=== PATIENT | male | born 1965 | race Caucasian/White ===

== ENCOUNTER 2019-01-22 18:38 | Inpatient (IN) | payer MEDICAID ==
[~2019-01-22] VITALS: Ht 170.2 cm; Wt 72.1 kg
[2019-01-22] MEDS ORDERED: CHLO100T24 PO ×2 (19:17)
[2019-01-22] MEDS ORDERED: ATOR20TA86 PO (19:17)
[2019-01-22] MEDS ORDERED: CARB200T6 PO (19:17)
[2019-01-22] MEDS ORDERED: BUPR-93 PO (19:17)
[2019-01-22] MEDS ORDERED: BENZ1TAB10 PO (19:17)
[2019-01-22] MEDS ORDERED: LORazepam 2 MG TABLET PO PRN (19:45)
[2019-01-22] MEDS ORDERED: ZOLPIDEM TARTRATE 10 MG TABLET PO PRN (19:45)
[2019-01-22] MEDS ORDERED: HALOPERIDOL 5 MG TABLET PO PRN (19:45)
[2019-01-22 20:16] VITALS: BP 125/65
[2019-01-22] MEDS: NICOTINE 14 MG/24 HOUR PATCH TD PRN (21:16)
[2019-01-23 06:20] VITALS: BP 117/84
[2019-01-23 07:25] LABS: BASOPHILS % (AUTO) 0.4 % (0.0-2.0); EOSINOPHILS % (AUTO) 6.4 % (1.0-6.0); HEMATOCRIT 42.3 % (41-53); HEMOGLOBIN 14.4 g/dL (13.5-17.5); LYMPHOCYTES # (AUTO) 1.4 K/uL (1.0-4.8); LYMPHOCYTES % (AUTO) 22.9 % (22.0-44.0); MEAN CORPUSCULAR HGB CONC 34.1 G/dL (31.0-37.0); MEAN CORPUSCULAR VOLUME 97 fL (80-100); MONOCYTES # (AUTO) 0.6 K/uL (0.1-1.0); MONOCYTES % (AUTO) 9.6 % (2.0-9.0); NEUTROPHILS # (AUTO) 3.6 K/uL (1.8-7.7); NEUTROPHILS % (AUTO) 60.7 % (40.0-70.0); PLATELET COUNT (AUTO) 211 K/uL (150-450); RED BLOOD CELL COUNT(AUTO) 4.38 MIL/uL (4.50-5.90); RED CELL DISTRIBUTION WIDTH 12.8 % (11.5-14.5)
[2019-01-23 07:50] LABS: HEMOGLOBIN A1C 5.1 % (4.5-6.2)
[2019-01-23 08:03] LABS: ALANINE AMINOTRANSFERASE 33 U/L (12-78); ALBUMIN 3.7 g/dL (3.4-5.0); ALKALINE PHOSPHATASE 66 U/L (46-116); ANION GAP 7 mmol/L (8-16); ASPARTATE AMINOTRANSFERASE 20 U/L (15-37); BILIRUBIN,TOTAL 0.3 mg/dL (0.1-1.0); CALCIUM, TOTAL 9.2 mg/dL (8.8-10.5); CARBAMAZEPINE (TEGRETOL) 4.9 mcg/mL (4.0-12.0); CARBON DIOXIDE 30 mmol/L (22-29); CHLORIDE 100 mmol/L (98-107); CHOLESTEROL 167 mg/dL (131-200); CREATININE 1.06 mg/dL (0.60-1.30); FREE T4 (FREE THYROXINE) 0.66 ng/dL (0.76-1.46); GLOMERULAR FILTR. RATE CALC > 60 mL/min (>60); GLUCOSE,RANDOM 114 mg/dL (70-110); HDL CHOLESTEROL 42 mg/dL (40-60); LDL CHOL (CALC.) 112 mg/dL (0-130); POTASSIUM 4.4 mmol/L (3.5-5.1); SODIUM SERUM 137 mmol/L (136-145); THYROID STIMULATING HORMONE 1.44 uIU/mL (0.36-3.74); TOTAL PROTEIN, SERUM 7.4 g/dL (6.4-8.2); TRIGLYCERIDES 65 mg/dL (15-150); UREA NITROGEN, BLOOD 13 mg/dL (7-18)
[2019-01-23 08:10] VITALS: BP 101/66
[2019-01-23] MEDS: ATORVASTATIN CALCIUM 20 MG TABLET PO SCH (08:20)
[2019-01-23] MEDS: BuPROPion HCL XL 150 MG ER TABLET PO SCH (13:13)
[2019-01-23] MEDS: CarBAMazepine 200 MG TABLET PO SCH (16:36)
[2019-01-23] MEDS: BENZTROPINE MESYLATE 0.5 MG TABLET PO SCH (16:36)
[2019-01-23 17:00] VITALS: BP 108/69
[2019-01-23] MEDS: ChlorproMAZINE HCL 100 MG TABLET PO SCH (20:09)
[2019-01-24 06:05] VITALS: BP 100/60
[2019-01-24] MEDS: CarBAMazepine 200 MG TABLET PO SCH ×2 (08:05→16:28)
[2019-01-24] MEDS: BENZTROPINE MESYLATE 0.5 MG TABLET PO SCH ×2 (08:05→16:28)
[2019-01-24] MEDS: BuPROPion HCL XL 150 MG ER TABLET PO SCH (08:05)
[2019-01-24] MEDS: ATORVASTATIN CALCIUM 20 MG TABLET PO SCH (08:05)
[2019-01-24] MEDS: ChlorproMAZINE HCL 100 MG TABLET PO SCH ×2 (08:05→20:10)
[2019-01-24 08:22] VITALS: BP 113/79
[2019-01-24] MEDS ORDERED: HYPROMELLOSE 0.5% 15 ML OPHTHALMIC SOLUTION OU PRN (11:00)
[2019-01-24] MEDS: NICOTINE 14 MG/24 HOUR PATCH TD PRN (12:03)
[2019-01-24 16:05] VITALS: BP 121/64
[2019-01-25 03:06] VITALS: BP 127/67
[2019-01-25 08:13] VITALS: BP 111/64
[2019-01-25] MEDS: ATORVASTATIN CALCIUM 20 MG TABLET PO SCH (08:24)
[2019-01-25] MEDS: BENZTROPINE MESYLATE 0.5 MG TABLET PO SCH ×2 (08:24→16:03)
[2019-01-25] MEDS: CarBAMazepine 200 MG TABLET PO SCH ×2 (08:24→16:03)
[2019-01-25] MEDS: ChlorproMAZINE HCL 100 MG TABLET PO SCH ×2 (08:24→20:06)
[2019-01-25] MEDS: BuPROPion HCL XL 150 MG ER TABLET PO SCH (08:25)
[2019-01-25 16:17] VITALS: BP 121/69
[2019-01-25] MEDS ORDERED: MAGNESIUM CITRATE 300 ML ORAL SOLUTION PO PRN (17:45)
[2019-01-25] MEDS: DOCUSATE SODIUM 250 MG CAPSULE PO SCH (18:09)
[2019-01-26 02:00] VITALS: BP 101/69
[2019-01-26 08:07] VITALS: BP 106/69
[2019-01-26] MEDS: BuPROPion HCL XL 150 MG ER TABLET PO SCH (08:32)
[2019-01-26] MEDS: BENZTROPINE MESYLATE 0.5 MG TABLET PO SCH ×2 (08:32→16:37)
[2019-01-26] MEDS: ChlorproMAZINE HCL 100 MG TABLET PO SCH ×2 (08:32→20:44)
[2019-01-26] MEDS: ATORVASTATIN CALCIUM 20 MG TABLET PO SCH (08:32)
[2019-01-26] MEDS: DOCUSATE SODIUM 250 MG CAPSULE PO SCH (08:32)
[2019-01-26] MEDS: CarBAMazepine 200 MG TABLET PO SCH ×2 (08:33→16:37)
[2019-01-26] MEDS: NICOTINE 14 MG/24 HOUR PATCH TD PRN (08:49)
[2019-01-26 16:23] VITALS: BP 106/62
[2019-01-27 00:37] VITALS: BP 110/67
[2019-01-27 08:17] VITALS: BP 118/60
[2019-01-27] MEDS: DOCUSATE SODIUM 250 MG CAPSULE PO SCH (08:17)
[2019-01-27] MEDS: ATORVASTATIN CALCIUM 20 MG TABLET PO SCH (08:17)
[2019-01-27] MEDS: BuPROPion HCL XL 150 MG ER TABLET PO SCH (08:17)
[2019-01-27] MEDS: ChlorproMAZINE HCL 100 MG TABLET PO SCH ×2 (08:17→20:01)
[2019-01-27] MEDS: BENZTROPINE MESYLATE 0.5 MG TABLET PO SCH ×2 (08:17→16:09)
[2019-01-27] MEDS: CarBAMazepine 200 MG TABLET PO SCH ×2 (08:17→16:09)
[2019-01-27] MEDS: NICOTINE 14 MG/24 HOUR PATCH TD PRN (08:44)
[2019-01-27 16:26] VITALS: BP 108/60
[2019-01-28 00:22] VITALS: BP 124/78
[2019-01-28] MEDS: CarBAMazepine 200 MG TABLET PO SCH ×2 (08:14→16:44)
[2019-01-28] MEDS: BuPROPion HCL XL 150 MG ER TABLET PO SCH (08:14)
[2019-01-28] MEDS: BENZTROPINE MESYLATE 0.5 MG TABLET PO SCH ×2 (08:15→16:44)
[2019-01-28] MEDS: ATORVASTATIN CALCIUM 20 MG TABLET PO SCH (08:15)
[2019-01-28] MEDS: ChlorproMAZINE HCL 100 MG TABLET PO SCH ×2 (08:15→20:18)
[2019-01-28] MEDS: DOCUSATE SODIUM 250 MG CAPSULE PO SCH (08:15)
[2019-01-28 08:45] VITALS: BP 90/64
[2019-01-28] MEDS: NICOTINE 14 MG/24 HOUR PATCH TD PRN (09:03)
[2019-01-28 16:05] VITALS: BP 105/66
[2019-01-29 00:14] VITALS: BP 115/65
[2019-01-29] MEDS: ChlorproMAZINE HCL 100 MG TABLET PO SCH ×2 (08:13→20:39)
[2019-01-29] MEDS: ATORVASTATIN CALCIUM 20 MG TABLET PO SCH (08:13)
[2019-01-29] MEDS: BuPROPion HCL XL 150 MG ER TABLET PO SCH (08:13)
[2019-01-29] MEDS: CarBAMazepine 200 MG TABLET PO SCH ×2 (08:13→16:51)
[2019-01-29] MEDS: BENZTROPINE MESYLATE 0.5 MG TABLET PO SCH ×2 (08:13→16:51)
[2019-01-29] MEDS: DOCUSATE SODIUM 250 MG CAPSULE PO SCH (08:13)
[2019-01-29 08:25] VITALS: BP 109/60
[2019-01-29 16:40] VITALS: BP 117/64
[2019-01-30 01:12] VITALS: BP 122/78
[2019-01-30] MEDS: BENZTROPINE MESYLATE 0.5 MG TABLET PO SCH (08:24)
[2019-01-30] MEDS: DOCUSATE SODIUM 250 MG CAPSULE PO SCH (08:24)
[2019-01-30] MEDS: ATORVASTATIN CALCIUM 20 MG TABLET PO SCH (08:24)
[2019-01-30] MEDS: ChlorproMAZINE HCL 100 MG TABLET PO SCH (08:24)
[2019-01-30] MEDS: CarBAMazepine 200 MG TABLET PO SCH (08:24)
[2019-01-30] MEDS: BuPROPion HCL XL 150 MG ER TABLET PO SCH (08:25)
[2019-01-30] MEDS ORDERED: ATOR20TA86 PO (08:43)
[2019-01-30] MEDS ORDERED: BUPR-93 PO ×2 (08:43→08:53)
[2019-01-30 08:53] VITALS: BP 106/60
[2019-01-30] MEDS ORDERED: BENZ0.5T44 PO (08:53)
[2019-01-30] MEDS ORDERED: CHLO100T24 PO ×2 (08:56→08:57)
[2019-01-30] MEDS ORDERED: DOCU250C91 PO (08:59)
== END 2019-01-30 13:38 | disposition home or self-care (01) | DRG 750 ==
LOC: B2S 19:46
PROVIDERS: ADMIT Psychiatry & Neurology Psychiatry; ATTEND Psychiatry & Neurology Psychiatry
DX: F25.0 Schizoaffective disorder, bipolar type (principal); R45.851 Suicidal ideations; G25.9 Extrapyramidal and movement disorder, unspecified; E78.5 Hyperlipidemia, unspecified; F41.9 Anxiety disorder, unspecified; Z59.0 Homelessness; Z91.19 Patient's noncompliance with other medical treatment and regimen; Z91.5 Personal history of self-harm
CPT/HCPCS: 83036; 84439; 84443

== ENCOUNTER 2021-01-03 13:53 | Emergency (ER) | payer MEDICAID, OTHER ==
[~2021-01-03] VITALS: Ht 170.2 cm; Wt 72.7 kg
[~2021-01-03 13:53] MED LIST: ATOR20TA86 PO; BENZ0.5T44 PO; BUPR-93 PO; CARB200T6 PO; CHLO100T31 PO; DOCU-350 PO
[2021-01-03 15:55] LABS: HEMATOCRIT 37.8 % (41-53); HEMOGLOBIN 12.8 g/dL (13.5-17.5); LYMPHOCYTES % (AUTO) 17.1 % (22.0-44.0); MEAN CORPUSCULAR HEMOGLOBIN 32.9 pg (26.0-34.0); MEAN CORPUSCULAR HGB CONC 33.8 G/dL (31.0-37.0); MEAN CORPUSCULAR VOLUME 97 fL (80-100); MONOCYTES # (AUTO) 0.6 K/uL (0.1-1.0); MONOCYTES % (AUTO) 10.8 % (2.0-9.0); NEUTROPHILS # (AUTO) 3.9 K/uL (1.8-7.7); NEUTROPHILS % (AUTO) 68.1 % (40.0-70.0); PLATELET COUNT (AUTO) 186 K/uL (150-450); RED CELL DISTRIBUTION WIDTH 13.5 % (11.5-14.5)
[2021-01-03 16:03] LABS: CHLORIDE 104 mmol/L (98-107); POTASSIUM 3.9 mmol/L (3.5-5.1); SODIUM SERUM 137 mmol/L (136-145)
[2021-01-03 16:04] LABS: ANION GAP 1 mmol/L (8-16); CALCIUM, TOTAL 8.8 mg/dL (8.8-10.5); CARBON DIOXIDE 32 mmol/L (22-29); CREATININE 0.92 mg/dL (0.60-1.30); GLOMERULAR FILTR. RATE CALC > 60 mL/min (>60); GLUCOSE,RANDOM 102 mg/dL (70-110); UREA NITROGEN, BLOOD 5 mg/dL (7-18)
[2021-01-03 16:10] LABS: ALANINE AMINOTRANSFERASE 26 U/L (12-78); ALBUMIN 3.9 g/dL (3.4-5.0); ALKALINE PHOSPHATASE 59 U/L (46-116); ASPARTATE AMINOTRANSFERASE 25 U/L (15-37); BILIRUBIN,TOTAL 0.4 mg/dL (0.1-1.0)
[2021-01-03 16:45] LABS: AMPHET/METH SCREEN,URINE POSITIVE (NEGATIVE); BARBITURATE SCREEN, URINE NEGATIVE (NEGATIVE); BENZODIAZEPINES SCREEN,URINE NEGATIVE (NEGATIVE); CANNABINOID SCREEN,URINE NEGATIVE (NEGATIVE); COCAINE SCREEN,URINE NEGATIVE (NEGATIVE); METHADONE SCREEN, URINE NEGATIVE (NEGATIVE); OPIATE SCREEN,URINE NEGATIVE (NEGATIVE)
[2021-01-03 16:46] LABS: PHENCYCLIDINE SCREEN,URINE NEGATIVE (NEGATIVE)
[2021-01-03 17:50] VITALS: BP 115/53
== END 2021-01-03 18:51 | disposition home or self-care (01) ==
LOC: EMS 13:57
DX: F15.10 Other stimulant abuse, uncomplicated (principal); F20.9 Schizophrenia, unspecified; F31.9 Bipolar disorder, unspecified; Z79.899 Other long term (current) drug therapy
CPT/HCPCS: 36415; 80053; 80307; 85025; 99283; G0480